=== PATIENT | male | born 1980 | race Caucasian/White ===

== ENCOUNTER 2016-11-30 16:04 | Inpatient (IN) | payer OTHER ==
[~2016-11-30] VITALS: Ht 165.1 cm; Wt 61.2 kg
[2016-11-30 17:10] LABS: HEMOGLOBIN 16.1 gm/dl (14.0-17.5); RED BLOOD COUNT 4.88 M/UL (4.20-5.50)
[2016-11-30 17:30] LABS: BUN/CREATININE RATIO 14 (0-10)
[2016-12-01] MEDS ORDERED: LISINOPRIL20 MG PO (04:54)
[2016-12-02 06:42] LABS: BUN/CREATININE RATIO 8 (0-10)
[2016-12-02 07:21] LABS: HEMOGLOBIN 13.6 gm/dl (14.0-17.5); RED BLOOD COUNT 4.2 M/UL (4.20-5.50); WHITE BLOOD COUNT 4.6 K/UL (4.5-11.0)
[2016-12-03] MEDS ORDERED: LOPRESSOR 25 MG25 MG PO (16:04)
== END 2016-12-04 08:25 | disposition home or self-care (01) | DRG 897 ==
LOC: ER1 16:04 → MED SURG 4 12-01 03:00 → ZEROF 12-01 03:00 → MED SURG 4 12-01 04:34
PROVIDERS: Specialist/Technologist Athletic Trainer; ADMIT Internal Medicine Infectious Disease
DX: F10.239 Alcohol dependence with withdrawal, unspecified (principal); I10 Essential (primary) hypertension; Z59.0 Homelessness; F17.210 Nicotine dependence, cigarettes, uncomplicated; E87.6 Hypokalemia; R51 Headache
CPT/HCPCS: 36415; 80053; 82272; 83690; 83735; 84100; 84132; 84484; 85025; 96365; 96366; 96375; 99285; C9113; G0480; J2060; J2405; J2550; J3411; J3475; J7030